=== PATIENT | male | born 1985 | race Caucasian/White ===

== ENCOUNTER 2017-06-25 11:32 | Emergency (ER) | payer MEDICAID ==
[2017-06-25 11:44] VITALS: RESP 18; TEMP 97.7
--- NOTE | 2017-06-25 12:03 | ED PDOC ---
Arrival/HPI - General Chief Complaint: Chest Pain Time Seen by Provider: 06/25/17 11:33 - History of Present Illness Narrative History of Present Illness (Text): 31 year old male with a past medical history of Multiple Sclerosis (diagnosed in 2008, not on any medication, aside from medical Marijuana) who presents with left sided chest pain, acute onset shortness of breath, and numbness and paresthesias in the distal upper extremities since 7:30 AM. 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 He has had two episodes of this chest pain and associated shortness of breath thus far. The pain is along the left side of his chest, intermittent, scaled 6/10 in severity, non-radiating, somewhat improved when he lays on his left side, associated with shortness of breath and a choking sensation. He is a smoker, admits to taking medicinal marijuana, denies any illicit drug use, any family history of heart disease, or any similar symptoms in the past. He denies nausea, vomiting, radiation of the chest pain, or diaphoresis. 06/25/17 11:57 (Isela Rashid) Past Medical History - Provider Review Nursing Documentation Reviewed: Yes - Infectious Disease Hx of Infectious Diseases: None - Neurological Hx Neurological Disorder: Yes Hx Multiple Sclerosis: Yes - Psychiatric Hx Substance Use: No - Surgical History Other/Comment: Hemorrhoids removal surgery. Family/Social History - Physician Review Nursing Documentation Reviewed: Yes Family/Social History: Unknown Family HX Smoking Status: Never Smoked Hx Alcohol Use: No Hx Substance Use: No Allergies/Home Meds Allergies/Adverse Reactions: Allergies gabapentin [From Neurontin] Allergy (Verified 06/25/17 11:44) ANAPHYLAXIS Flavia syndrome vancomycin Allergy (Verified 06/25/17 11:44) ANAPHYLAXIS Flavia syndrome Home Medications: Home Meds Medication Instructions Recorded Confirmed No Known Home Med 06/25/17 06/25/17 Review of Systems - Review of Systems Constitutional: Normal. absent: Fatigue, Fevers, Night Sweats Eyes: Normal. absent: Vision Changes, Photophobia ENT: absent: Hearing Changes, Tinnitus, Sore Throat Respiratory: SOB. absent: Sputum, Wheezing Cardiovascular: Chest Pain. absent: Palpitations, Edema, Calf Pain Gastrointestinal: absent: Abdominal Pain, Stool Changes, Constipation, Nausea, Vomiting Musculoskeletal: absent: Back Pain, Neck Pain, Joint Swelling Skin: absent: Rash, Pruritis, Skin Lesions Neurological: absent: Headache, Dizziness, Focal Weakness Endocrine: absent: Diaphoresis Hemo/Lymphatic: absent: Easy Bleeding, Easy Bruising Psychiatric: absent: Anxiety, Depression Physical Exam Temperature: Afebrile Blood Pressure: Normal Pulse: Regular Respiratory Rate: Normal Appearance: Positive for: Other (anxietal) Pain Distress: Mild Mental Status: Positive for: Alert and Oriented X 3 - Systems Exam Head: Present: Atraumatic, Normocephalic Pupils: Present: PERRL Extroacular Muscles: Present: EOMI Conjunctiva: Present: Injected Mouth: Present: Moist Mucous Membranes Pharnyx: Present: Normal. No: ERYTHEMA, EXUDATE Neck: Present: Normal Range of Motion. No: Lymphadenopathy, Bruit Respiratory/Chest: Present: Clear to Auscultation, Good Air Exchange. No: Respiratory Distress, Accessory Muscle Use Cardiovascular: Present: Regular Rate and Rhythm, Normal S1, S2 Abdomen: Present: Normal Bowel Sounds. No: Tenderness, Distention Back: Present: Normal Inspection. No: CVA Tenderness, Midline Tenderness Upper Extremity: Present: Normal Inspection. No: Cyanosis, Edema Lower Extremity: Present: Normal Inspection. No: Edema, CALF TENDERNESS Neurological: Present: CN II-XII Intact, Speech Normal Psychiatric: Present: Alert, Oriented x 3, Normal Insight, Normal Concentration Vital Signs Temp Pulse Pulse Resp BP BP Pulse Ox 06/25/17 15:28 97.7 F 73 18 126/78 97 06/25/17 12:01 86 123/84 06/25/17 11:40 97.7 F 77 18 123/84 99 Medical Decision Making - EKG Interpretation Interpreted by ED Physician: Yes Type: 12 lead EKG ED Course and Treatment: EKG shows LVH by voltage criteria based on avL,; no acute ST-T wave changes. CBC shows eosinophilia, no leukocytosis. Cardiac enzymes negative for ACS. D-dimer initially reported as twice normal limit; however, Lab called back Emergency pocket secretary assembler, Genesis, and informed her that the initial D-dimer was invalid and in fact less than 243 micrograms/dL. CT per PE protocol pending. 06/25/17 14:29 CT angiogram shows no evidence of pulmonary embolism or any other noted abnormalities. CXR revealed no acute disease. 06/25/17 15:27 (Isela Rashid) - Lab Interpretations Lab Results: 06/25/17 12:19 06/25/17 12:19 Lab Results 06/25/17 15:41: Urine Opiates Screen Negative, Urine Methadone Screen Negative, Ur Barbiturates Screen Negative, Ur Phencyclidine Scrn Negative, Ur Amphetamines Screen Negative, U Benzodiazepines Scrn Negative, U Oth Cocaine Metabols Negative, U Cannabinoids Screen Negative 06/25/17 15:41: Urine Color Yellow, Urine Appearance Clear, Urine pH 6.5, Ur Specific [place] 1.010, Urine Protein Negative, Urine Glucose (UA) Negative, Urine Ketones 15 H, Urine Blood Negative, Urine Nitrate Negative, Urine Bilirubin Negative, Urine Urobilinogen 0.2, Ur Leukocyte Esterase Negative 06/25/17 12:19: D-Dimer, Quantitative < 200 06/25/17 12:19: Sodium 141, Potassium 3.9, Chloride 105, Carbon Dioxide 24, Anion Gap 16, BUN 17, Creatinine 0.8, Est GFR ( Amer) > 60, Est GFR (Non- Af Amer) > 60, Random Glucose 95, Calcium 9.4, Total Bilirubin 0.7, AST 25, ALT 40, Alkaline Phosphatase 76, Lactate Dehydrogenase 354, Total Creatine Kinase 69 , Troponin I < 0.01, Total Protein 7.4, Albumin 4.5, Globulin 2.9, Albumin/ Globulin Ratio 1.6 06/25/17 12:19: WBC 6.0, RBC 5.28, Hgb 15.2, Hct 43.9, MCV 83.1, MCH 28.8, MCHC 34.6, RDW 12.6, Plt Count 188, MPV 10.5, Gran % 49.5 L, Lymph % (Auto) 33.6, [place] % (Auto) 9.2 H, Eos % (Auto) 7.2 H, Baso % (Auto) 0.5, Gran # 2.98, Lymph # 2.0, [place] # 0.6, Eos # 0.4, Baso # 0.03 - RAD Interpretation Radiology Orders: 06/25/17 11:55 CHEST PORTABLE [RAD] Stat 06/25/17 13:08 ANGIO CHEST PE PROTOCOL [CT] Stat Disposition/Present on Arrival - Present on Arrival Any Indicators Present on Arrival: No History of DVT/PE: No History of Uncontrolled Diabetes: No Urinary Catheter: No History of Decub. Ulcer: No History Surgical Site Infection Following: None - Disposition Have Diagnosis and Disposition been Completed?: Yes Disposition Time: 15:34 Patient Plan: Discharge - Disposition Diagnosis: Chest pain Disposition: HOME/ ROUTINE Condition: GOOD Discharge Instructions (ExitCare): Chest Wall Pain (ED) Additional Instructions: 1) Please follow up with your PMD within the next week. 2) Return to the ED for any worsening symptoms. Forms: [employer] (Vietnamese)
[2017-06-25 12:23] LABS: BASO # 0.03 K/mm3 (0.0-2.0); BASO % 0.5 % (0.0-3.0); EOS # 0.4 (0.0-0.7); EOS % 7.2 % (1.5-5.0); GRAN # 2.98 (1.4-6.5); GRAN % 49.5 % (50.0-68.0); HEMATOCRIT 43.9 % (42.0-52.0); LYMPH % 33.6 % (22.0-35.0); MEAN CELL VOLUME 83.1 fl (80.0-105.0); MEAN CORPUSCULAR HEMOGLOBIN 28.8 pg (25.0-35.0); MEAN CORPUSCULAR HGB CONC 34.6 g/dl (31.0-37.0); MEAN PLATELET VOLUME 10.5 fl (7.0-11.0); MONO # 0.6 (0.1-0.6); MONO % 9.2 % (1.0-6.0); RED CELL DISTRIBUTION WIDTH 12.6 % (11.5-14.5)
[2017-06-25 12:34] LABS: ALB/GLOB RATIO 1.6 (1.1-1.8); ALKALINE PHOSPHATASE 76 U/L (38-126); ALT/SGPT 40 U/L (7-56); AST/SGOT 25 U/L (17-59); BILIRUBIN,TOTAL 0.7 mg/dL (0.2-1.3); BLOOD UREA NITROGEN 17 mg/dL (7-21); CALCIUM 9.4 mg/dL (8.4-10.5); CARBON DIOXIDE 24 mmol/L (21-33); CHLORIDE 105 mmol/L (98-107); GFR AFRICAN-AMERICAN > 60; GLUCOSE,RANDOM 95 mg/dL (70-110); POTASSIUM 3.9 mmol/L (3.6-5.0); SODIUM 141 mmol/L (132-148); TOTAL PROTEIN 7.4 g/dL (5.8-8.3)
[2017-06-25 12:45] LABS: TROPONIN I < 0.01 ng/mL
--- NOTE | 2017-06-25 13:15 | RAD ---
HISTORY: chest pain, shortness of breath COMPARISON: No prior. FINDINGS: LUNGS: No active pulmonary disease. PLEURA: No significant pleural effusion identified, no pneumothorax apparent. CARDIOVASCULAR: Normal. OSSEOUS STRUCTURES: No significant abnormalities. VISUALIZED UPPER ABDOMEN: Normal. OTHER FINDINGS: None. IMPRESSION: No active disease.
[2017-06-25] MEDS ORDERED: Iohexol 350 MG/100 ML VIAL ONE (13:49)
--- NOTE | 2017-06-25 15:22 | CT ---
PROCEDURE: CT Chest with contrast (Pulmonary Angiogram) HISTORY: elevated d-dimer, acute onset sob COMPARISON: None available. TECHNIQUE: Axial computed tomography images were obtained of the chest in the pulmonary arterial phase of enhancement. Coronal and sagittal reformatted images were created and reviewed. This CT exam was performed using one or more of the following dose reduction techniques: Automated exposure control, adjustment of the mA and/or kV according to patient size, and/or use of iterative reconstruction technique. Intravenous contrast dose: 100 cc of Omni 350 Radiation dose: Total exam DLP = 365 mGy-cm. FINDINGS: PULMONARY ARTERIES: Unremarkable. No pulmonary embolism. AORTA: No acute findings. No thoracic aortic aneurysm. LUNGS: Unremarkable. No nodule, mass or pulmonary consolidation. PLEURAL SPACES: Unremarkable. No effusion or pneuomothorax. HEART: Unremarkable. No cardiomegaly. No significant pericardial effusion. LYMPH NODES: No lymphadenopathy. BONES, CHEST WALL: Unremarkable. No fracture or destructive lesion OTHER FINDINGS: Unremarkable. IMPRESSION: Unremarkable CT pulmonary angiogram. No pulmonary embolus.
[2017-06-25 15:30] VITALS: O2SAT 97
[2017-06-25 15:58] VITALS: BP 123/84; PULSE 86
[2017-06-25 16:05] LABS: PH,URINE 6.5 (4.7-8.0); URINE BILIRUBIN NEGATIVE (NEGATIVE); URINE BLOOD NEGATIVE (NEGATIVE); URINE GLUCOSE (UA) NEGATIVE (NEGATIVE); URINE KETONE 15 mg/dL (NEGATIVE); URINE LEUKOCYTE ESTERASE NEGATIVE Leu/uL (NEGATIVE); URINE PROTEIN NEGATIVE mg/dL (<30 mg/dL); URINE UROBILINOGEN 0.2 E.U./dL (<1 E.U./dL)
[2017-06-25 16:08] LABS: URINE APPEARANCE CLEAR (CLEAR); URINE COLOR YELLOW (YELLOW)
--- NOTE | 2017-06-26 23:11 | CARD ---
APPROVED REPORT EKG Measurement Heart [id number] [id number] <Conclusion> Normal sinus rhythm with sinus arrhythmia Voltage criteria for left ventricular hypertrophy Abnormal ECG
== END 2017-06-25 16:12 | disposition home or self-care (01) ==
LOC: ED 11:32
DX: R07.9 Chest pain, unspecified (principal); G35 Multiple sclerosis
CPT/HCPCS: 71010; 71275; 80053; 80324; 80345; 80346; 80349; 80353; 80358; 80361; 81003; 82550; 83615; 83992; 84484; 85025; 85378; 93005; 99283; Q9967